=== PATIENT | male | born 1960 | race American Indian/Alaskan Native ===

== ENCOUNTER 2019-06-13 01:17 | Observation (INO) | payer MEDICAID ==
--- NOTE | 2019-06-13 03:49 | Cat Scan Report ---
CT head without contrast INDICATION : Syncope. TECHNIQUE: Axial imaging performed from the skull apex through the skull base without the use of con trast. All CT scans at this location are performed using CT dose reduction for ALARA by means of aut omated exposure control. COMPARISON: CT facial bones from 03/06/2019 FINDINGS: Parenchyma: No acute intracranial hemorrhage or parenchymal abnormality. Ventricles: Ventricles are normal in size and appear symmetric. Soft tissues: Soft tissues including the orbits appear normal. Bones: No acute osseous abnormality. Sinuses: Sinuses and mastoid air cells are clear. IMPRESSION: No acute abnormality. Signer Name: James Mike MD Signed: 06/13/2019 3:45 AM Workstation Name: [id number]
[2019-06-13 03:54] LABS: Basophils # (Auto) 0.1 K/mm3 (0.0-0.1); Basophils % (Auto) 0.6 % (0.0-1.8); Eosinophils # (Auto) 0.3 K/mm3 (0.0-0.4); Eosinophils % (Auto) 2.7 % (0.0-4.3); Hematocrit 40.5 % (35.5-45.6); Hemoglobin 13.3 gm/dl (11.8-15.2); Lymphocytes # (Auto) 3.2 K/mm3 (1.2-5.4); Lymphocytes % (Auto) 28.8 % (13.4-35.0); Mean Corpuscular HGB Conc 33 % (32-34); Mean Corpuscular Volume 80 fl (84-94); Monocytes % (Auto) 8.5 % (0.0-7.3); Platelet Count 277 K/mm3 (140-440); Red Blood Count 5.05 M/mm3 (3.65-5.03); Red Cell Distribution Width 14.3 % (13.2-15.2)
[2019-06-13 04:23] LABS: Alanine Aminotransferase 16 units/L (7-56); Albumin 4.2 g/dL (3.9-5); BUN/Creatinine Ratio 12; Blood Urea Nitrogen 22 mg/dL (9-20); Calcium 9.6 mg/dL (8.4-10.2); Hemolysis Index 13
[2019-06-13] MEDS ORDERED: SODIUM CHLORIDE 0.9% 1000 ML 1,000 ML IV ONE (07:07)
[2019-06-13] MEDS ORDERED: ACETAMINOPHEN 500 MG TAB PO ONE (07:08)
--- NOTE | 2019-06-13 07:13 | Emergency Department Report ---
ED General Adult HPI - General Chief complaint: Syncope Stated complaint: SYNCOPE Time Seen by Provider: 06/13/19 06:44 Source: patient, EMS (EMS documentation not available at this time.), RN notes reviewed, old records reviewed Mode of arrival: Ambulatory Limitations: No Limitations - History of Present Illness Initial comments: Primary care doctor: Dr. Wayne The patient is a 59-year-old gentleman, history of renal insufficiency, obesity, diabetes, hypertension, "overactive bladder", recently started a new bladder medication around 1 month ago. Presents to the ER today with complaint of multiple episodes of syncope. Patient reports that over the past year or so, he's been having episodes of loss of consciousness. There typically precipita sylvain by cough. He was evaluated at [facility] last year, and reports that he had a normal cardiac stress test. He reports over the past day and a half, 3 episodes of loss of consciousness, which are provoked by coughing. He indicates he is taking new bladder medication 1 month ago, and he is not quite sure what the name of it is. He denies DVT and pulmonary embolus risk factors. He landed onto his right head earlier on yesterday after losing consciousness. He has a mild right-sided headache. He also has paraspinal back pain, left flank pain, right hip pain, and twisted knee after falling out and/or losing consciousness. He has no chest pain, no new shortness of breath, no anterior abdominal pain, no testicular pain, no hematuria, he reports brown stool, that is dark, he is not sure if there is any blood. There is no focal extremity weakness and/or numbness. He denies DVT and pulmonary embolism risk factors. -: Sudden Location: back, lower extremity Severity scale (0 -10): 8 Quality: aching Consistency: intermittent Improves with: movement, rest Worsens with: other (coughing) - Related Data Home Medications Medication Instructions Recorded Confirmed Last Taken Flomax 10/31/14 10/31/14 10/31/14 Ziprasidone [Geodon] 60 mg PO BID 10/31/14 03/08/19 03/08/19 10:00 Aspirin [Aspirin BABY CHEW TAB] 81 mg PO QDAY 03/08/19 03/08/19 Unknown Celexa 10 mg PO QDAY 03/08/19 03/08/19 Unknown Colchicine 6 mg PO DAILY 03/08/19 03/08/19 Unknown Flexeril 10 MG TAB 10 mg PO BID PRN 03/08/19 03/08/19 Unknown Levemir VIAL 40 units SQ QHS 03/08/19 03/08/19 Unknown Lipitor 40 mg PO QHS 03/08/19 03/08/19 Unknown Lispro Insulin [HumaLOG] 16 units SQ AC 03/08/19 03/08/19 Unknown Metoprolol Tartrate 50 mg PO BID 03/08/19 03/08/19 Unknown Proscar 5 mg PO QDAY 03/08/19 03/08/19 Unknown amLODIPine 10 mg PO QDAY 03/08/19 03/08/19 Unknown oxyCODONE 15 mg PO QID PRN 03/08/19 03/08/19 Unknown Previous Rx's Medication Instructions Recorded Last Taken Type Clindamycin [Clindamycin CAP] 600 mg PO BID #20 capsule 03/08/19 Unknown Rx Allergies Allergy/AdvReac Type Severity Reaction Status Date / Time lisinopril AdvReac Unknown Verified 06/13/19 02:50 ED Review of Systems ROS: Stated complaint: SYNCOPE Other details as noted in HPI Constitutional: denies: fever Eyes: denies: eye discharge ENT: denies: epistaxis Respiratory: cough. denies: wheezing Cardiovascular: syncope. denies: chest pain Gastrointestinal: other. denies: abdominal pain, nausea, vomiting, hematemesis, melena Genitourinary: denies: testicular pain Musculoskeletal: back pain, arthralgia, myalgia Skin: denies: lesions Neurological: headache. denies: weakness Hematological/Lymphatic: other ED Past Medical Hx - Past Medical History Previous Medical History?: Yes Hx Hypertension: Yes Hx Congestive Heart Failure: No Hx Diabetes: Yes Hx Renal Disease: Yes (Decreased kidney function. MD monitoring.) Hx Arthritis: Yes Hx Kidney Stones: Yes Hx Asthma: No Hx COPD: No Additional medical history: Boils, Gallstones, Kidney Stones, Gout, Anemia, Neuropathy - Surgical History Past Surgical History?: No - Social History Smoking Status: Current Every Day Smoker - Medications Home Medications: Home Medications Medication Instructions Recorded Confirmed Last Taken Type Flomax 10/31/14 10/31/14 10/31/14 History Ziprasidone [Geodon] 60 mg PO BID 10/31/14 03/08/19 03/08/19 10:00 History Aspirin [Aspirin BABY CHEW TAB] 81 mg PO QDAY 03/08/19 03/08/19 Unknown History Celexa 10 mg PO QDAY 03/08/19 03/08/19 Unknown History Clindamycin [Clindamycin CAP] 600 mg PO BID #20 capsule 03/08/19 Unknown Rx Colchicine 6 mg PO DAILY 03/08/19 03/08/19 Unknown History Flexeril 10 MG TAB 10 mg PO BID PRN 03/08/19 03/08/19 Unknown History Levemir VIAL 40 units SQ QHS 03/08/19 03/08/19 Unknown History Lipitor 40 mg PO QHS 03/08/19 03/08/19 Unknown History Lispro Insulin [HumaLOG] 16 units SQ AC 03/08/19 03/08/19 Unknown History Metoprolol Tartrate 50 mg PO BID 03/08/19 03/08/19 Unknown History Proscar 5 mg PO QDAY 03/08/19 03/08/19 Unknown History amLODIPine 10 mg PO QDAY 03/08/19 03/08/19 Unknown History oxyCODONE 15 mg PO QID PRN 03/08/19 03/08/19 Unknown History ED Physical Exam - General Limitations: No Limitations General appearance: alert, in no apparent distress, obese - Head Head exam: Present: atraumatic, normocephalic - Eye Eye exam: Present: normal appearance, PERRL, EOMI. Absent: nystagmus - ENT ENT exam: Present: normal exam, normal orophraynx, mucous membranes moist, normal external ear exam - Neck Neck exam: Present: normal inspection, full ROM. Absent: tenderness, meni ngismus - Respiratory Respiratory exam: Present: normal lung sounds bilaterally. Absent: respiratory distress - Cardiovascular Cardiovascular Exam: Present: normal rhythm, tachycardia, normal heart sounds. Absent: systolic murmur, diastolic murmur, rubs, gallop - GI/Abdominal GI/Abdominal exam: Present: soft. Absent: distended, tenderness, guarding, rebound, rigid, pulsatile mass - Rectal Rectal exam: Present: normal inspection, normal rectal tone, heme (-) stool, other (chaperoned by nurse Henok Ly). Absent: heme (+) stool, black stool, bloody stool, fecal impaction, hemorrhoids, mass, tenderness, prostate tenderness, prostate enlargement - Extremities Exam Extremities exam: Present: normal inspection, full ROM, other (2+ pulses noted in the bilateral upper and lower extremities. There is no long bony tenderness. The pelvis is stable. The muscular compartments are soft. There is no palpable cord. There is no redness, pus or streaking.). Absent: calf tenderness - Back Exam Back exam: Present: normal inspection. Absent: tenderness, CVA tenderness (R), CVA tenderness (L), paraspinal tenderness, vertebral tenderness - Neurological Exam Neurological exam: Present: alert, oriented X3, normal gait, other (there is no facial droop. Tongue is midline. Extraocular movements are intact bilaterally. Walking with a steady gait. Speaking in full sentences. Normal appropriate thought content. 5 out of 5 strength in 4 extremities. Sensation is intact to light touch in 4 extremities.). Absent: motor sensory deficit - Psychiatric Psychiatric exam: Present: normal affect, normal mood - Skin Skin exam: Present: warm, dry, intact, normal color. Absent: rash ED Course Vital Signs 06/13/19 06/13/19 06/13/19 03:05 07:07 07:16 Temperature 98.1 F Pulse Rate 118 H Respiratory 20 Rate Blood Pressure 128/66 Blood Pressure 141/87 [Right] O2 Sat by Pulse 98 100 99 Oximetry 06/13/19 06/13/19 06/13/19 07:34 07:54 08:00 Temperature Pulse Rate Respiratory Rate Blood Pressure 128/66 122/77 120/74 Blood Pressure [Right] O2 Sat by Pulse 100 99 100 Oximetry 06/13/19 08:30 Temperature Pulse Rate Respiratory Rate Blood Pressure 128/66 Blood Pressure [Right] O2 Sat by Pulse 100 Oximetry - Reevaluation(s) Reevaluation #1: 06/13/19 07:13 Differential diagnosis, including but not limited to: Orthostasis, vagal event, structural cardiac disease, medication side effect, AAA, dehydration, pulmonary embolism, GI bleed Assessment and plan: 59-year-old gentleman with a number of vascular comorbidities, with multiple episodes of syncope, provoked by coughing. He is afebrile with reassuring vital signs with the exception of tachycardia, does not endorse any pulmonary embolism or DVT risk factors and he is low risk by well's criteria. Clinically sober, GCS of 15, cervical spine cleared through [place] and nexus C-spine rule. Leading diagnosis is likely orthostasis less vagal event, likely exacerbated by numerous medications with potential for orthostatics. We have requested medications be reconciled. Noncontrast CT scan of the brain is negative for acute disease. There is no evidence of bleeding on my rectal examination, and hemoglobin, hematocrit are fairly unremarkable at this time. Given tachycardia, x-ray of the chest and d-dimer will be ordered, given complaint of back pain and left flank pain, noncontrast CT scan of the abdomen and pelvis will be ordered. Additional appropriate screening laboratory studies are ordered. Discussed this with the patient, we have recommended admission to the medical service once initial diagnostics have resulted. Patient reports he is amenable to this plan of care. Reevaluation #2: 06/13/19 07:57 D-dimer negative. Hospital physician, Dr. Matilde Ibarra to admit We are still awaiting medication reconciliation. X-ray of the chest unremarkable. Noncontrast CT scan of her pelvis does not demonstrate any AAA that I can detect. ED Medical Decision Making - Lab Data Result diagrams: 06/13/19 03:33 06/13/19 03:33 Vital Signs 06/13/19 03:05 Temperature 98.1 F Pulse Rate 118 H Respiratory 20 Rate Blood Pressure 141/87 [Right] O2 Sat by Pulse 98 Oximetry Lab Results 06/13/19 06/13/19 Range/Units 03:33 03:33 WBC 11.3 H (4.5-11.0) K/mm3 RBC 5.05 H (3.65-5.03) M/mm3 Hgb 13.3 (11.8-15.2) gm/dl Hct 40.5 (35.5-45.6) % MCV 80 L (84-94) fl MCH 26 L (28-32) pg MCHC 33 (32-34) % RDW 14.3 (13.2-15.2) % Plt Count 277 (140-440) K/mm3 Lymph % (Auto) 28.8 (13.4-35.0) % [place] % (Auto) 8.5 H (0.0-7.3) % Eos % (Auto) 2.7 (0.0-4.3) % Baso % (Auto) 0.6 (0.0-1.8) % Lymph # 3.2 (1.2-5.4) K/mm3 [place] # 1.0 H (0.0-0.8) K/mm3 Eos # 0.3 (0.0-0.4) K/mm3 Baso # 0.1 (0.0-0.1) K/mm3 Seg Neutrophils % 59.4 (40.0-70.0) % Seg Neutrophils # 6.7 (1.8-7.7) K/mm3 Sodium 136 L (137-145) mmol/L Potassium 4.8 (3.6-5.0) mmol/L Chloride 99.7 (98-107) mmol/L Carbon Dioxide 20 L (22-30) mmol/L Anion Gap 21 mmol/L BUN 22 H (9-20) mg/dL Creatinine 1.8 H (0.8-1.5) mg/dL Estimated GFR 47 ml/min BUN/Creatinine Ratio 12 % Glucose 224 H (75-100) mg/dL Calcium 9.6 (8.4-10.2) mg/dL Total Bilirubin 0.20 (0.1-1.2) mg/dL AST 13 (5-40) units/L ALT 16 (7-56) units/L Alkaline Phosphatase 105 (35-129) units/L Troponin T < 0.010 (0.00-0.029) ng/mL Total Protein 8.0 (6.3-8.2) g/dL Albumin 4.2 (3.9-5) g/dL Albumin/Globulin Ratio 1.1 % - EKG Data -: EKG Interpreted by Ok EKG shows normal: sinus rhythm Rate: tachycardia - EKG Data When compared to previous EKG there are: previous EKG unavailable 06/13/19 07:15 EKG today shows a sinus tachycardia, 114 bpm, there is a normal axis, QTC is prolonged, low voltage in the inferior leads, motion artifact V4 and V5. Poor R progression. Abnormal EKG. Not consistent with STEMI. - Radiology Data Radiology results: pending, report reviewed, image reviewed Referring Physician: KRIS MÉNDEZ Patient Name: CHIN AMAYA Date of : 1960 Sex: Male Report Date: 2019-06-13 Report Status: Finalized Findings [address] [place] [address] Cat Scan Report Signed Patient: CHIN AMAYA MR#: [id number] : 1960 Acct:[id number] Age/Sex: 59 / M ADM Date: 06/13/19 Loc: ED Attending Dr: Ordering Physician: Kris Sorto MD Date of Service: 06/13/19 Procedure(s): CT head/brain wo con Accession Number(s): [id number] cc: Kris Sorto MD CT head without contrast INDICATION : Syncope. TECHNIQUE: Axial imaging performed from the skull apex through the skull base without the use of contrast. All CT scans at this location are performed using CT dose reduction for ALARA by means of automated exposure control. COMPARISON: CT facial bones from 03/06/2019 FINDINGS: Parenchyma: No acute intracranial hemorrhage or parenchymal abnormality. Ventricles: Ventricles are normal in size and appear symmetric. Soft tissues: Soft tissues including the orbits appear normal. Bones: No acute osseous abnormality. Sinuses: Sinuses and mastoid air cells are clear. IMPRESSION: No acute abnormality. Signer Name: James Mike MD Signed: 06/13/2019 3:45 AM Workstation Name: [id number] Transcribed By: JW Dictated By: James Mike MD Electronically Authenticated By: James Mike MD Signed Date/Time: 06/13/19 2325 Critical care attestation.: If time is entered above; I have spent that time in minutes in the direct care of this critically ill patient, excluding procedure time. ED Disposition Clinical Impression: Acute worsening of stage 3 chronic kidney disease, Syncope, Acute left flank pain Disposition: OP ADMIT IP TO THIS HOSP Is pt being admited?: Yes Does the pt Need Aspirin: Yes Condition: Stable
[2019-06-13 07:42] LABS: INR 0.95 (0.87-1.13)
[2019-06-13] MEDS ORDERED: ASPIRIN 81 MG TAB CHEW PO ONE (07:58)
--- NOTE | 2019-06-13 08:09 | History and Physical Report ---
History of Present Illness Date of examination: 06/13/19 Date of admission: 06/13/19 Chief complaint: Recurrent syncope, intermittent rectal bleeding History of present illness: 59-year-old morbidly obese -[place] male patient with significant past medical history of chronic renal insufficiency morbid obesity diabetes hypertension over active bladder Present to the emergency room with history of recurrent syncopal episodes and intermittent rectal bleeding. However the total exam negative for occult blood done by ER physician Patient reports that he's been having these syncopal episodes for the last 1 year off and on especially when he has persistent cough. Patient reports that he has difficulty swallowing which causes him to cough and excessive cough makes him pass out. Patient has not sought medical help for difficulty swallowing. CT head without contrast no acute abnormality noted Vision denies chest pain or shortness of breath, denies palpitation Denies nausea or vomiting or abdominal pain Past History Past Medical History: diabetes, hypertension, hyperlipidemia, other (BPH) Past Surgical History: Other (sebaceous cyst excision) Social history: lives with family, smoking. denies: alcohol abuse, prescription drug abuse Family history: hypertension Medications and Allergies Allergies Allergy/AdvReac Type Severity Reaction Status Date / Time lisinopril AdvReac Unknown Verified 06/13/19 02:50 Home Medications Medication Instructions Recorded Confirmed Last Taken Type Amlodipine Besylate [Norvasc] 10 mg PO QDAY 06/13/19 06/13/19 Unknown History Aspirin [Aspirin BABY CHEW TAB] 81 mg PO QDAY 06/13/19 06/13/19 Unknown History AtorvaSTATin [Lipitor] 40 mg PO QHS 06/13/19 06/13/19 Unknown History Cyclobenzaprine [Flexeril] 10 mg PO BID 06/13/19 06/13/19 Unknown History Finasteride 5 mg PO QDAY 06/13/19 06/13/19 Unknown History Insulin Detemir [Levemir Flextouch] 40 unit SQ QDAY 06/13/19 06/13/19 Unknown History Insulin Lispro [Humalog 100 16 units SUB-Q TID 06/13/19 06/13/19 Unknown History UNITS/ML Kwikpen] Metoprolol Tartrate 50 mg PO BID 06/13/19 06/13/19 Unknown History Oxycodone HCl [oxyCODONE] 15 mg PO Q6H PRN 06/13/19 06/13/19 Unknown History Tamsulosin [Flomax] 0.4 mg PO QDAY 06/13/19 06/13/19 Unknown History Active Meds: Active Medications Sodium Chloride (Nacl 0.9% 1000 Ml) 1,000 mls @ 999 mls/hr IV BOLUS ONE Stop: 06/13/19 08:07 Last Admin: 06/13/19 08:00 Dose: 999 mls/hr Documented by: Review of Systems Constitutional: fatigue, no weight loss, no weight gain, no fever, no chills Ears, nose, mouth and throat: no nasal congestion, no nasal discharge Cardiovascular: syncope, lightheadedness, no chest pain, no orthopnea, no palpitations, no shortness of breath Respiratory: no cough, no shortness of breath Gastrointestinal: other (difficulty swallowing), no abdominal pain, no nausea, no vomiting Genitourinary Male: no dysuria, no flank pain Musculoskeletal: no myalgias, no arthritis Integumentary: no rash, no lesions Neurological: syncope Psychiatric: no anxiety, no depression Endocrine: no cold intolerance, no heat intolerance Hematologic/Lymphatic: no easy bruising, no easy bleeding Allergic/Immunologic: no urticaria, no allergic rhinitis Exam - Constitutional Vitals: Temp Pulse Resp BP Pulse Ox 98.1 F 118 H 20 122/77 99 06/13/19 03:05 06/13/19 03:05 06/13/19 03:05 06/13/19 07:54 06/13/19 07:54 General appearance: Present: mild distress, well-nourished, obese (morbidly obese) - EENT Eyes: Present: PERRL, EOM intact - Neck Neck: Present: supple, normal ROM - Respiratory Respiratory effort: normal Respiratory: bilateral: diminished, negative: rales, rhonchi, wheezing - Cardiovascular Rhythm: regular Heart Sounds: Present: S1 & S2 - Extremities Extremities: no ischemia, No edema - Abdominal General gastrointestinal: Present: soft, non-tender, non-distended, normal bowel sounds - Integumentary Integumentary: Present: clear, warm - Musculoskeletal Musculoskeletal: strength equal bilaterally - Psychiatric Psychiatric: appropriate mood/affect, cooperative - Neurologic Neurologic: CNII-XII intact, moves all extremities Results - Labs CBC & Chem 7: 06/13/19 03:33 02/03/20 03:33 Labs: Abnormal lab results 02/03/20 02/03/20 02/03/20 Range/Units 03:33 03:33 07:00 WBC 11.3 H (4.5-11.0) K/mm3 RBC 5.05 H (3.65-5.03) M/mm3 MCV 80 L (84-94) fl MCH 26 L (28-32) pg [place] % (Auto) 8.5 H (0.0-7.3) % [place] # 1.0 H (0.0-0.8) K/mm3 Sodium 136 L (137-145) mmol/L Carbon Dioxide 20 L (22-30) mmol/L BUN 22 H (9-20) mg/dL Creatinine 1.8 H (0.8-1.5) mg/dL Glucose 224 H (75-100) mg/dL Total Creatine Kinase 230 H (55-170) units/L Assessment and Plan --Recurrent episodes syncope; autonomic instability Probably vasovagal medication induced Fall precautions, review home medications when list is available CT head negative for acute abnormality Syncope work-up carotid Doppler echocardiogram if not done in the last 6 months Physical therapy occupational therapy --Rectal bleeding; closely monitor H&H and transfuse as needed GI evaluation, stool guaiac was negative per ER doctor --Acute kidney injury; vasomotor nephropathy Gentle hydration, monitor renal function, avoid nephrotoxins --Type 2 diabetes mellitus; Accu-Chek sliding scale coverage ADA diet Oral hypoglycemics as needed, patient's recent hemoglobin A1c within last 6 months HbA1c 14.9, Diabetic education, nutrition education --Hypertension; moderate control However in view of recurrent syncope, will hold antihypertensives Closely monitor blood pressures PRN medications --Morbid obesity; Advised weight reduction when medically stable --History of BPH; continue Flomax --History of psych disorder/psychotic depression; hold all psych medications Psych consult to review medications and advice --DVT prophylaxis; Lovenox Monitor closely and adjust management as needed
--- NOTE | 2019-06-13 08:24 | XRay Report ---
XR pelvis 1-2V INDICATION / CLINICAL INFORMATION: hip pain fall. COMPARISON: None available. FINDINGS: BONES/JOINT(S): No acute fracture or subluxation. Moderate bilateral hip DJD. SOFT TISSUES: No significant abnormality. ADDITIONAL FINDINGS: None. Signer Name: Rodri Roberts MD Signed: 06/13/2019 8:20 AM Workstation Name: [id number]
--- NOTE | 2019-06-13 08:25 | XRay Report ---
CHEST 1 VIEW 06/13/2019 7:33 AM INDICATION / CLINICAL INFORMATION: syncope x 3, cough. COMPARISON: 03/06/2019 FINDINGS: SUPPORT DEVICES: None. HEART / MEDIASTINUM: No significant abnormality. LUNGS / PLEURA: No significant pulmonary or pleural abnormality. No pneumothorax. Developmental azygo s fissure again noted. ADDITIONAL FINDINGS: No significant additional findings. IMPRESSION: 1. No acute findings. Signer Name: Rodri Roberts MD Signed: 06/13/2019 8:20 AM Workstation Name: [email or web address]
[2019-06-13 08:26] LABS: Bilirubin,Urine NEG (Negative); Blood,Urine NEG (Negative); Color,Urine Yellow (Yellow); Mucus,Urine FEW /HPF; Protein,Urine <15 mg/dL mg/dL (Negative); Urobilinogen,Urine < 2.0 mg/dL (<2.0)
--- NOTE | 2019-06-13 09:11 | Cat Scan Report ---
CT ABDOMEN AND PELVIS WITHOUT CONTRAST HISTORY: left flank pain , back pain syncope COMPARISON: None. TECHNIQUE: Axial CT images were obtained through the abdomen and pelvis without IV contrast. Sagittal and coronal reformatted images. All CT scans at this location are performed using CT dose reduction for ALARA by means of automated exposure control. FINDINGS: CT ABDOMEN: Lung Bases: Clear. Liver: No significant abnormality. Biliary: No significant abnormality. Spleen: No significant abnormality. Unenlarged. Pancreas: No significant abnormality. Adrenals: No significant abnormality. Kidneys: Scattered punctate renal calyceal stones are identified in both kidneys. No obvious ureteral stones or hydronephrosis. No cystic disease or obvious mass on noncontrast CT. Lymphatics: No lymphadenopathy. Vasculature: No significant abnormality. Bowel/Peritoneum: There are a few scattered diverticula in the ascending and sigmoid colon. No eviden ce for obstruction or focal inflammation. No free fluid or free air. Normal appendix. CT PELVIS: : No significant abnormality. Osseous Structures: No significant abnormality. Additional Findings: None IMPRESSION: No acute process. Bilateral nephrolithiasis, nonobstructing. No ureteral stones are detected. Mild diverticulosis of the colon. Signer Name: Chad Andrade Jr, MD Signed: 06/13/2019 9:07 AM Workstation Name: [id number]
[2019-06-13] MEDS ORDERED: COLCHICINE 0.6 MG CAP PO SCH (10:00)
[2019-06-13] MEDS ORDERED: ASPIRIN 81 MG TAB CHEW ONE (10:15)
[2019-06-13] MEDS: ASPIRIN 81 MG TAB CHEW PO SCH (10:22)
[2019-06-13] MEDS: INSULIN LISPRO 100 UNIT/ML SUB-Q SCH ×3 (12:00→22:44)
--- NOTE | 2019-06-13 16:23 | Vascular Lab Report ---
BILATERAL CAROTID DOPPLER HISTORY: Syncope. FINDINGS: Duplex Doppler evaluation of the carotid system was performed with spectral waveform analys is. Antegrade vertebral flow is present bilaterally. Peak systolic velocity at the right internal carotid artery is 67 cm/s. Systolic velocity ratio is 0. 9. Peak systolic velocity at the left internal carotid artery is 72 cm/s. Systolic velocity ratio is 0.9 . Grayscale imaging demonstrates mild scattered plaque, but no flow limiting stenosis. IMPRESSION: Stenosis less than 50% bilaterally at the internal carotid arteries per NASCET criteria. Signer Name: Miguel Merchant MD Signed: 06/13/2019 4:18 PM Workstation Name: [id number]
[2019-06-13] MEDS ORDERED: NON-FORMULARY EACH (Lipitor 40 MG) PO SCH (22:00)
[2019-06-13] MEDS ORDERED: METOPROLOL TARTRATE 50 MG PO SCH (22:00)
[2019-06-13] MEDS ORDERED: INSULIN GLARGINE 100 UNITS/ML SUB-Q SCH (22:00)
[2019-06-13] MEDS: METOPROLOL TARTRATE 50 MG TAB PO SCH (22:30)
[2019-06-14 06:19] LABS: Basophils # (Auto) 0.1 K/mm3 (0.0-0.1); Basophils % (Auto) 0.7 % (0.0-1.8); Eosinophils # (Auto) 0.3 K/mm3 (0.0-0.4); Eosinophils % (Auto) 3.4 % (0.0-4.3); Hematocrit 39.1 % (35.5-45.6); Hemoglobin 12.5 gm/dl (11.8-15.2); Lymphocytes # (Auto) 2.8 K/mm3 (1.2-5.4); Lymphocytes % (Auto) 32.9 % (13.4-35.0); Mean Corpuscular HGB Conc 32 % (32-34); Mean Corpuscular Volume 82 fl (84-94); Monocytes # (Auto) 0.7 K/mm3 (0.0-0.8); Monocytes % (Auto) 7.9 % (0.0-7.3); Platelet Count 230 K/mm3 (140-440); Red Cell Distribution Width 14.6 % (13.2-15.2)
[2019-06-14 06:30] LABS: Calcium 8.4 mg/dL (8.4-10.2)
[2019-06-14] MEDS: INSULIN LISPRO 100 UNIT/ML SUB-Q SCH ×4 (09:22→14:05)
[2019-06-14] MEDS ORDERED: NICOTINE 14 MG/24 HR PATCH TD SCH (10:00)
[2019-06-14] MEDS ORDERED: amLODIPine 10 MG TAB PO SCH (10:00)
[2019-06-14] MEDS ORDERED: FINASTERIDE 5 MG TAB PO SCH (10:00)
[2019-06-14] MEDS ORDERED: TAMSULOSIN 0.4 MG CAP PO SCH (10:00)
--- NOTE | 2019-06-14 10:42 | Gastroenterology Consultation ---
History of Present Illness - Reason for Consult Consult date: 06/14/19 rectal bleeding, dysphagia Requesting physician: RASTA PÉREZ - History of Present Illness Patient is a 59 y/o male with PMH of renal insufficiency, obesity, DM, HTN, and BPH who presented to ED with c/o syncope associated with coughing to which he was admitted and currently undergoing a workup. He also had c/o intermittent rectal bleeding and difficulty swallowing to which GI has been consulted. Patient is previously known to our service and followed by Dr. Elaine. He has a hx of PATI requiring prior daily iron supplements and chronic constipation due to chronic narcotic use for back pain. His last colonoscopy was last year on 06/15/2018 that revealed a descending polyp, diverticulosis, and internal hemorrhoids. Last EGD for evaluation of dark stool was on 10/02/2017 that showed gastritis (bx negative for H pylori) but no ulcer. This morning patient was resting in bed w/o acute distress. He reports dysphagia to solids (primarily breads) x ~2 months, along with a recent episode of constipation with bright red blood in stool following BM x 1 week. No hematemesis, melena, or active signs of bleeding today. Also admits to frequent regurgitation but denies fever, CP, SOB, wt loss, N/v, odynophagia, or diarrhea. Takes daily ASA. No hx of PUD or liver disease. Abd CT w/o acute process. Past History Past Medical History: diabetes, hypertension, hyperlipidemia, other (BPH) Past Surgical History: Other (sebaceous cyst excision) Social history: lives with family, smoking. denies: alcohol abuse, prescription drug abuse Family history: hypertension Medications and Allergies Allergies Allergy/AdvReac Type Severity Reaction Status Date / Time lisinopril AdvReac Unknown Verified 06/13/19 02:50 Home Medications Medication Instructions Recorded Confirmed Last Taken Type Amlodipine Besylate [Norvasc] 10 mg PO QDAY 06/13/19 06/13/19 Unknown History Aspirin [Aspirin BABY CHEW TAB] 81 mg PO QDAY 06/13/19 06/13/19 Unknown History AtorvaSTATin [Lipitor] 40 mg PO QHS 06/13/19 06/13/19 Unknown History Cyclobenzaprine [Flexeril] 10 mg PO BID 06/13/19 06/13/19 Unknown History Finasteride 5 mg PO QDAY 06/13/19 06/13/19 Unknown History Insulin Detemir [Levemir Flextouch] 40 unit SQ QDAY 06/13/19 06/13/19 Unknown History Insulin Lispro [Humalog 100 16 units SUB-Q TID 06/13/19 06/13/19 Unknown History UNITS/ML Kwikpen] Metoprolol Tartrate 50 mg PO BID 06/13/19 06/13/19 Unknown History Oxycodone HCl [oxyCODONE] 15 mg PO Q6H PRN 06/13/19 06/13/19 Unknown History Tamsulosin [Flomax] 0.4 mg PO QDAY 06/13/19 06/13/19 Unknown History Active Meds: Active Medications Amlodipine Besylate (Amlodipine) 10 mg PO QDAY [facility] Aspirin (Baby Aspirin) 81 mg PO QDAY [facility] Last Admin: 06/13/19 10:22 Dose: 81 mg Documented by: Atorvastatin Calcium (Lipitor) 40 mg PO QHS [facility] Last Admin: 06/13/19 22:31 Dose: 40 mg Documented by: Finasteride (Proscar) 5 mg PO QDAY [facility] Insulin Glargine (Lantus) 20 units SUB-Q QHS [facility] Last Admin: 06/13/19 22:30 Dose: 20 units Documented by: Insulin Human Lispro (Humalog) 0 unit SUB-Q [facility]; Protocol Last Admin: 06/14/19 09:28 Dose: 3 unit Documented by: Insulin Human Lispro (Humalog) 8 unit SUB-Q [facility] Last Admin: 06/14/19 09:22 Dose: Not Given Documented by: Metoprolol Tartrate (Metoprolol) 50 mg PO BID [facility] Last Admin: 06/13/19 22:30 Dose: 50 mg Documented by: Nicotine (Habitrol) 14 mg TD QDAY [facility] Tamsulosin HCl (Flomax) 0.4 mg PO QDAY [facility] medications reviewed/updated as required Review of Systems - Review of Systems All systems: negative Gastrointestinal: BRBPR, other (dysphagia to solids) Exam - Constitutional Vital Signs: Temp Pulse Resp BP Pulse Ox 98.0 F 90 16 136/84 99 06/14/19 03:30 06/14/19 03:30 06/14/19 04:00 06/14/19 03:30 06/14/19 03:30 General appearance: no acute distress, obese - EENT Eyes: PERRL, EOM intact ENT: hearing intact - Respiratory Respiratory effort: normal - Cardiovascular Rhythm: regular - Gastrointestinal General gastrointestinal: Present: soft, non-tender, non-distended, normal bowel sounds, other (obese) - Integumentary Integumentary: Present: warm, dry - Neurologic Neurological: alert and oriented x3 - Labs CBC & Chem 7: 06/14/19 04:28 06/14/19 04:28 Lab Results: Laboratory Results - last 24 hr 06/13/19 06/13/19 06/14/19 16:47 22:44 04:28 WBC 8.4 RBC 4.80 Hgb 12.5 Hct 39.1 MCV 82 L MCH 26 L MCHC 32 RDW 14.6 Plt Count 230 Lymph % (Auto) 32.9 [place] % (Auto) 7.9 H Eos % (Auto) 3.4 Baso % (Auto) 0.7 Lymph # 2.8 [place] # 0.7 Eos # 0.3 Baso # 0.1 Seg Neutrophils % 55.1 Seg Neutrophils # 4.6 Sodium Potassium Chloride Carbon Dioxide Anion Gap BUN Creatinine Estimated GFR BUN/Creatinine Ratio Glucose POC Glucose 261 H 280 H Calcium Magnesium 06/14/19 06/14/19 04:28 07:42 WBC RBC Hgb Hct MCV MCH MCHC RDW Plt Count Lymph % (Auto) [place] % (Auto) Eos % (Auto) Baso % (Auto) Lymph # [place] # Eos # Baso # Seg Neutrophils % Seg Neutrophils # Sodium 136 L Potassium 4.4 Chloride 101.3 Carbon Dioxide 20 L Anion Gap 19 BUN 23 H Creatinine 1.7 H Estimated GFR 51 BUN/Creatinine Ratio 14 Glucose 246 H POC Glucose 219 H Calcium 8.4 Magnesium 1.90 Assessment and Plan 1.dysphagia 2.cough/regurgitation -patient with difficulty swallowing solids (breads) x ~2 months -last EGD 09/2017 showed gastritis (bx negative for H pylori; esophagus normal) -etiology-possibly related to GERD vs other -will order esophagram for further evaluation (r/o stricture/mass) -consider repeat EGD based on results -start on PPI -Keep NPO for now -continue supportive care -further recommendations to follow 3.hematochezia 4.constipation (chronic 2/2 narcotics use) -H/H WNL; monitor and transfuse as needed -HD stable; no active signs of bleeding today -last colonoscopy on 06/15/2018 that revealed a descending polyp, diverticulosis, and internal hemorrhoids -etiology-likely anorectal in origin (hemorrhoids) -no plan for repeat colonoscopy at this time, unless overt bleeding develops -start on daily bowel regimen with Miralax -topical hydrocortisone for hemorrhoids -continue supportive care
--- NOTE | 2019-06-14 11:53 | Fluoroscopy Report ---
BARIUM SWALLOW Indication: dysphagia. Technique: Single contrast barium technique utilized to evaluate the esophagus. FINDINGS: To begin the exam, swallowing was evaluated in the lateral position under direct fluorosco py. Swallowing was normal. No mucosal irregularity, mass, mass effect, or critical stenosis. There were no abnormal tertiary c ontractions as seen with dysmotility. No gastroesophageal reflux. IMPRESSION: Unremarkable exam. Fluoroscopic time: 0.7 minutes Number of fluoroscopic images: 17 Signer Name: Chad Andrade Jr, MD Signed: 06/14/2019 11:48 AM Workstation Name: [id number]
[2019-06-14] MEDS ORDERED: POLYETHYLENE GLYCOL 3350 17 GM POWDER PO SCH (12:00)
[2019-06-14 13:05] VITALS: BP 140/90
[2019-06-14] MEDS: METOPROLOL TARTRATE 50 MG TAB PO SCH (13:47)
[2019-06-14] MEDS: ASPIRIN 81 MG TAB CHEW PO SCH (13:47)
[2019-06-14] MEDS ORDERED: PANTOPRAZOLE 40 MG TAB PO SCH (14:00)
[2019-06-14] MEDS ORDERED: HYDROCORTISONE 2.5% RECT CREAM 28.35 GM PR SCH (14:00)
[2019-06-14] MEDS ORDERED: oxyCODONE /ACETAMINOPHEN 5-325MG TAB PO PRN (14:05)
[2019-06-14] MEDS ORDERED: MORPHINE 2 MG/1 ML INJ IV PRN (14:06)
--- NOTE | 2019-06-14 14:15 | Progress Note ---
Assessment and Plan Assessment and plan: --Rectal bleeding; no new episodes GI evaluation noted and appreciated, stool guaiac x2 negative --History of dysphagia --Recurrent episodes syncope; autonomic instability Probably vasovagal, probably medication induced Fall precautions, review home medications when list is available CT head negative Carotid Doppler less than 50% stenosis Echocardiogram; Physical therapy if needed --Acute kidney injury; vasomotor nephropathy Gentle hydration, monitor renal function, avoid nephrotoxins --Type 2 diabetes mellitus; Accu-Chek sliding scale coverage ADA diet Oral hypoglycemics as needed, patient's recent hemoglobin A1c within last 6 months HbA1c 14.9, Diabetic education, nutrition education --Hypertension; moderate control However in view of recurrent syncope, will hold antihypertensives Closely monitor blood pressures PRN medications --Morbid obesity; Advised weight reduction when medically stable --History of BPH; continue Flomax --History of psych disorder/psychotic depression; hold all psych medications Psych consult to review medications and advice --DVT prophylaxis; Lovenox Monitor closely and adjust management as needed History Interval history: Patient seen and examined medical records reviewed No new episodes of rectal bleeding Barium swallow no acute abnormality Hospitalist Physical - Constitutional Vitals: Temp Pulse Resp BP Pulse Ox 98.0 F 90 16 140/90 99 06/14/19 03:30 06/14/19 03:30 06/14/19 04:00 06/14/19 11:46 06/14/19 03:30 General appearance: Present: mild distress, well-nourished, obese (morbidly obese) Results - Labs CBC & Chem 7: 06/14/19 04:28 06/14/19 04:28 Labs: Laboratory Last Values WBC 8.4 K/mm3 (4.5-11.0) 06/14/19 04:28 RBC 4.80 M/mm3 (3.65-5.03) 06/14/19 04:28 Hgb 12.5 gm/dl (11.8-15.2) 06/14/19 04:28 Hct 39.1 % (35.5-45.6) 06/14/19 04:28 MCV 82 fl (84-94) L 06/14/19 04:28 MCH 26 pg (28-32) L 06/14/19 04:28 MCHC 32 % (32-34) 06/14/19 04:28 RDW 14.6 % (13.2-15.2) 06/14/19 04:28 Plt Count 230 K/mm3 (140-440) 06/14/19 04:28 Lymph % (Auto) 32.9 % (13.4-35.0) 06/14/19 04:28 [place] % (Auto) 7.9 % (0.0-7.3) H 06/14/19 04:28 Eos % (Auto) 3.4 % (0.0-4.3) 06/14/19 04:28 Baso % (Auto) 0.7 % (0.0-1.8) 06/14/19 04:28 Lymph # 2.8 K/mm3 (1.2-5.4) 06/14/19 04:28 [place] # 0.7 K/mm3 (0.0-0.8) 06/14/19 04:28 Eos # 0.3 K/mm3 (0.0-0.4) 06/14/19 04:28 Baso # 0.1 K/mm3 (0.0-0.1) 06/14/19 04:28 Seg Neutrophils % 55.1 % (40.0-70.0) 06/14/19 04:28 Seg Neutrophils # 4.6 K/mm3 (1.8-7.7) 06/14/19 04:28 PT 12.8 Sec. (12.2-14.9) 06/13/19 07:00 INR 0.95 (0.87-1.13) 06/13/19 07:00 D-Dimer 170.81 ng/mlDDU (0-234) 06/13/19 07:00 Sodium 136 mmol/L (137-145) L 06/14/19 04:28 Potassium 4.4 mmol/L (3.6-5.0) 06/14/19 04:28 Chloride 101.3 mmol/L (98-107) 06/14/19 04:28 Carbon Dioxide 20 mmol/L (22-30) L 06/14/19 04:28 Anion Gap 19 mmol/L 06/14/19 04:28 BUN 23 mg/dL (9-20) H 06/14/19 04:28 Creatinine 1.7 mg/dL (0.8-1.5) H 06/14/19 04:28 Estimated GFR 51 ml/min 06/14/19 04:28 BUN/Creatinine Ratio 14 % 06/14/19 04:28 Glucose 246 mg/dL (75-100) H 06/14/19 04:28 POC Glucose 224 (70-105) H 06/14/19 12:36 Calcium 8.4 mg/dL (8.4-10.2) 06/14/19 04:28 Magnesium 1.90 mg/dL (1.7-2.3) 06/14/19 04:28 Total Bilirubin 0.20 mg/dL (0.1-1.2) 06/13/19 03:33 AST 13 units/L (5-40) 06/13/19 03:33 ALT 16 units/L (7-56) 06/13/19 03:33 Alkaline Phosphatase 105 units/L (35-129) 06/13/19 03:33 Total Creatine Kinase 230 units/L (55-170) H 06/13/19 07:00 Troponin T < 0.010 ng/mL (0.00-0.029) 06/13/19 07:00 Total Protein 8.0 g/dL (6.3-8.2) 06/13/19 03:33 Albumin 4.2 g/dL (3.9-5) 06/13/19 03:33 Albumin/Globulin Ratio 1.1 % 06/13/19 03:33 TSH 1.770 mlU/mL (0.270-4.200) 06/13/19 07:00 Free T4 1.04 ng/dL (0.76-1.46) 06/13/19 07:00 Urine Color Yellow (Yellow) 06/13/19 08:00 Urine Turbidity Slightly-cloudy (Clear) 06/13/19 08:00 Urine pH 5.0 (5.0-7.0) 06/13/19 08:00 Ur Specific [place] 1.018 (1.003-1.030) 06/13/19 08:00 Urine Protein <15 mg/dl mg/dL (Negative) 06/13/19 08:00 Urine Glucose (UA) >=500 mg/dL (Negative) 06/13/19 08:00 Urine Ketones Neg mg/dL (Negative) 06/13/19 08:00 Urine Blood Neg (Negative) 06/13/19 08:00 Urine Nitrite Neg (Negative) 06/13/19 08:00 Urine Bilirubin Neg (Negative) 06/13/19 08:00 Urine Urobilinogen < 2.0 mg/dL (<2.0) 06/13/19 08:00 Ur Leukocyte Esterase Tr (Negative) 06/13/19 08:00 Urine WBC (Auto) 8.0 /HPF (0.0-6.0) H 06/13/19 08:00 Urine RBC (Auto) 4.0 /HPF (0.0-6.0) 06/13/19 08:00 U Epithel Cells (Auto) 1.0 /HPF (0-13.0) 06/13/19 08:00 Uric Acid Crystals 2+ 06/13/19 08:00 Urine Mucus Few /HPF 06/13/19 08:00 Active Medications - Current Medications Current Medications: Generic Name Dose Route Start Last Admin Trade Name Freq PRN Reason Stop Dose Admin Amlodipine Besylate 10 mg 06/14/19 10:00 06/14/19 13:47 Amlodipine PO 10 mg QDAY KAYLYN Administration Aspirin 81 mg 06/13/19 10:00 06/14/19 13:47 Baby Aspirin PO 81 mg QDAY KAYLYN Administration Atorvastatin Calcium 40 mg 06/13/19 22:00 06/13/19 22:31 Lipitor PO 40 mg QHS KAYLYN Administration Finasteride 5 mg 06/14/19 10:00 06/14/19 13:47 Proscar PO 5 mg QDAY KAYLYN Administration Hydrocortisone Acetate 1 applic 06/14/19 14:00 Proctosol-Hc LA Q8HR [facility] Insulin Glargine 20 units 06/13/19 22:00 06/13/19 22:30 Lantus SUB-Q 20 units QHS KAYLYN Administration Insulin Human Lispro 0 unit 06/13/19 11:30 06/14/19 14:04 Humalog SUB-Q 3 unit ACHS [facility] Administration Protocol Insulin Human Lispro 8 unit 06/14/19 07:30 06/14/19 14:05 Humalog SUB-Q 8 unit AC KAYLYN Administration Metoprolol Tartrate 50 mg 06/13/19 22:00 06/14/19 13:47 Metoprolol PO 50 mg BID KAYLYN Administration Morphine Sulfate 2 mg 06/14/19 14:06 Morphine IV Q6H PRN Pain, Moderate (4-6) Nicotine 14 mg 06/14/19 10:00 06/14/19 13:47 Habitrol TD 14 mg QDAY KAYLYN Administration Oxycodone/Acetaminophen 1 tab 06/14/19 14:05 Percocet 5/325 PO Q4H PRN Pain, Moderate (4-6) Pantoprazole Sodium 40 mg 06/14/19 14:00 Protonix PO DAILY KAYLYN Polyethylene Glycol 17 gm 06/14/19 12:00 06/14/19 13:48 Miralax 3350 PO 17 gm QDAY KAYLYN Administration Tamsulosin HCl 0.4 mg 06/14/19 10:00 06/14/19 13:47 Flomax PO 0.4 mg QDAY KAYLYN Administration
--- NOTE | 2019-06-14 15:05 | Discharge Summary ---
Providers - Providers Date of Admission: 06/13/19 07:59 Date of discharge: 06/14/19 Attending physician: RASTA PÉREZ 06/13/19 17:57 Consult to Physician [CONS] Routine Comment: Consulting Provider: NAYELI STERLING Physician Instructions: Reason For Exam: intermittent rectal bleeding/dysphagia Primary care physician: RAINE PARNELL Hospitalization Condition: Stable Disposition: DC-01 TO HOME OR SELFCARE Time spent for discharge: 32 min Core Measure Documentation - Palliative Care Palliative Care/ Comfort Measures: Not Applicable - Core Measures Any of the following diagnoses?: none Exam - Constitutional Vitals: Temp Pulse Resp BP Pulse Ox 98.0 F 90 16 140/90 99 06/14/19 03:30 06/14/19 03:30 06/14/19 04:00 06/14/19 11:46 06/14/19 03:30 Plan Activity: advance as tolerated, fall precautions Diet: diabetic Additional Instructions: If you have new episodes of rectal bleeding contact MD or go to ER. ECHO report pending , You may call ECHO lab ext [phone] in 2 days and get the report and d/w PMD Follow up with: RAINE PARNELL SR, MD [Primary Care Provider] - 3-5 Days MIN,INDIA ANGELES MD [Staff Physician] - 14 Days Prescriptions: Hydrocortisone 2.5% [Proctosol-Hc] 1 applic LA Q8HR #1 tube Pantoprazole [Protonix TAB] 40 mg PO DAILY #30 tablet
== END 2019-06-14 18:47 | disposition home or self-care (01) ==
LOC: ED 01:17 → 4A 07:59
PROVIDERS: ADMIT Internal Medicine; ATTEND Internal Medicine
DX: N17.9 Acute kidney failure, unspecified (principal); R55 Syncope and collapse; I12.9 Hypertensive chronic kidney disease with stage 1 through stage 4 chronic kidney disease, or unspecified chronic kidney disease; N18.3 Chronic kidney disease, stage 3 (moderate); E11.22 Type 2 diabetes mellitus with diabetic chronic kidney disease; K62.5 Hemorrhage of anus and rectum; E66.01 Morbid (severe) obesity due to excess calories; E78.5 Hyperlipidemia, unspecified; Z79.82 Long term (current) use of aspirin; Z79.4 Long term (current) use of insulin
CPT/HCPCS: 36415; 70450; 71045; 72170; 74176; 74220; 80048; 80053; 81001; 82270; 82271; 82550; 82962; 83735; 84439; 84443; 84484; 85025; 85379; 85610; 93005; 93010; 93306; 93880; 96361; 96372; 99284; A9270; G0378; J7030; J1815

== ENCOUNTER 2019-10-14 03:10 | Emergency (ER) | payer MEDICAID ==
[2019-10-14 04:21] LABS: Basophils % (Auto) 0.6 % (0.0-1.8); Eosinophils # (Auto) 0.2 K/mm3 (0.0-0.4); Eosinophils % (Auto) 2.8 % (0.0-4.3); Hematocrit 38.7 % (35.5-45.6); Hemoglobin 12.6 gm/dl (11.8-15.2); Lymphocytes # (Auto) 2.4 K/mm3 (1.2-5.4); Mean Corpuscular HGB Conc 33 % (32-34); Mean Corpuscular Volume 81 fl (84-94); Monocytes # (Auto) 0.6 K/mm3 (0.0-0.8); Monocytes % (Auto) 6.7 % (0.0-7.3); Platelet Count 254 K/mm3 (140-440); Red Blood Count 4.76 M/mm3 (3.65-5.03); Red Cell Distribution Width 14.8 % (13.2-15.2)
[2019-10-14 04:33] LABS: INR 0.87 (0.87-1.13)
[2019-10-14 04:41] LABS: Albumin 4.1 g/dL (3.9-5)
[2019-10-14 07:23] LABS: Creatine Kinase MB 4.6 ng/mL (0.0-4.0)
[2019-10-14 11:15] VITALS: BP 135/83
== END 2019-10-14 11:14 | disposition home or self-care (01) ==
LOC: ED 03:10
DX: E11.65 Type 2 diabetes mellitus with hyperglycemia (principal); R55 Syncope and collapse; M13.88 Other specified arthritis, other site; I10 Essential (primary) hypertension; E11.40 Type 2 diabetes mellitus with diabetic neuropathy, unspecified; F17.210 Nicotine dependence, cigarettes, uncomplicated; Z86.2 Personal history of diseases of the blood and blood-forming organs and certain disorders involving the immune mechanism; Z79.899 Other long term (current) drug therapy; Z88.6 Allergy status to analgesic agent; Z79.4 Long term (current) use of insulin
CPT/HCPCS: 36415; 70450; 73630; 80053; 82550; 82553; 82805; 82962; 84443; 84484; 85025; 85610; 93005; 96361; 96374; 96375; 96376; 99285; J1885; J7030; 80320; G0480; J1815

== ENCOUNTER 2020-12-06 13:54 | Emergency (ER) | payer MEDICAID ==
[2020-12-06 15:00] VITALS: BP 147/93
--- NOTE | 2020-12-06 16:35 | XRay Report ---
RIGHT WRIST 4 VIEWS INDICATION / CLINICAL INFORMATION: Syncopal episode 2 days ago with right wrist pain and swelling. COMPARISON: None available. FINDINGS: BONES / JOINT(S): No acute fracture or subluxation. There are mild degenerative changes involving the first metacarpophalangeal joint. SOFT TISSUES: No significant abnormality. ADDITIONAL FINDINGS: None. Signer Name: Lito Gandara MD Signed: 12/06/2020 4:31 PM Workstation Name: [id number]
--- NOTE | 2020-12-06 19:03 | Event Note ---
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 Further treatment and workup at subsequent clinical providers discretion. Patient/guardian urged not to elope from the ED as their condition may be serious if not clinically assessed and managed. Initial orders include: labs, CT head
[2020-12-06 19:41] LABS: Basophils # (Auto) 0.1 K/mm3 (0.0-0.1); Basophils % (Auto) 0.6 % (0.0-1.8); Eosinophils # (Auto) 0.4 K/mm3 (0.0-0.4); Eosinophils % (Auto) 2.9 % (0.0-4.3); Hematocrit 44.4 % (35.5-45.6); Hemoglobin 14.3 gm/dl (11.8-15.2); Lymphocytes # (Auto) 2.8 K/mm3 (1.2-5.4); Lymphocytes % (Auto) 22.9 % (13.4-35.0); Mean Corpuscular HGB Conc 32 % (32-34); Mean Corpuscular Volume 82 fl (84-94); Monocytes % (Auto) 8.1 % (0.0-7.3); Platelet Count 255 K/mm3 (140-440); Red Blood Count 5.43 M/mm3 (3.65-5.03); Red Cell Distribution Width 14.7 % (13.2-15.2)
[2020-12-06 20:02] LABS: Albumin 4.4 g/dL (3.9-5); Calcium 10.3 mg/dL (8.4-10.2)
[2020-12-06] MEDS ORDERED: SODIUM CHLORIDE 0.9% 1000 ML 1,000 ML IV ONE (20:18)
[2020-12-06] MEDS ORDERED: KETOROLAC 30 MG/1 ML INJ IV ONE (20:57)
--- NOTE | 2020-12-06 21:02 | Emergency Department Report ---
ED General Adult HPI - General Chief complaint: Extremity Injury, Upper Stated complaint: FELL ON (R)HANDSWOLLEN IN PAIN Time Seen by Provider: 12/06/20 18:59 Source: patient Mode of arrival: Ambulatory Limitations: No Limitations - History of Present Illness Initial comments: 60 y/o right hand dominant male pt w/ hx of diabetes, hypertension, chronic re nal insufficiency, and vasovagal syncope presents to ED w/ complaints of right wrist pain starting three days ago. Pt states he was coughing when he passed out and landed onto his right wrist. Patient states he has experienced similar syncopal episodes with coughing on multiple prior occasions. Within the last year, he was evaluated by cemetery manager, who performed an echocardiogram and Holter monitoring, and did not find an underlying cardiac etiology for his recurrent syncope. Denies headache, neck pain, paresthesias, numbness, weakness, chest pain, palpitations, seizure shortness of breath. Denies all other complaints at this time. - Related Data Home Medications Medication Instructions Recorded Confirmed Last Taken Amlodipine Besylate [Norvasc] 10 mg PO QDAY 06/13/19 06/13/19 Unknown Aspirin [Aspirin BABY CHEW TAB] 81 mg PO QDAY 06/13/19 06/13/19 Unknown AtorvaSTATin [Lipitor] 40 mg PO QHS 06/13/19 06/13/19 Unknown Cyclobenzaprine [Flexeril 10 MG 10 mg PO BID 06/13/19 06/13/19 Unknown TAB] Finasteride 5 mg PO QDAY 06/13/19 06/13/19 Unknown Insulin Detemir [Levemir Flextouch] 40 unit SQ QDAY 06/13/19 06/13/19 Unknown Insulin Lispro [Humalog 100 16 units SUB-Q TID 06/13/19 06/13/19 Unknown UNITS/ML Kwikpen] Metoprolol Tartrate 50 mg PO BID 06/13/19 06/13/19 Unknown Oxycodone HCl [oxyCODONE] 15 mg PO Q6H PRN 06/13/19 06/13/19 Unknown Tamsulosin [Flomax] 0.4 mg PO QDAY 06/13/19 06/13/19 Unknown Previous Rx's Medication Instructions Recorded Last Taken Type Hydrocortisone 2.5% [Proctosol-Hc] 1 applic MO Q8HR #1 tube 06/14/19 Unknown Rx Insulin Glargine [Lantus VIAL] 20 units SUB-Q QHS units 06/14/19 Unknown Rx Pantoprazole [Protonix TAB] 40 mg PO DAILY #30 tablet 06/14/19 Unknown Rx Allergies Allergy/AdvReac Type Severity Reaction Status Date / Time lisinopril AdvReac Unknown Verified 12/06/20 14:55 ED Review of Systems ROS: Stated complaint: FELL ON (R)HANDSWOLLEN IN PAIN Other details as noted in HPI Other: GENERAL: Negative for fever, chills, weight change, anorexia, fatigue. ENT: Negative for ear pain, difficulty hearing, sore throat, nasal congestion, epistaxis. CARDIOVASCULAR: Negative for chest pain, palpitations, lower extremity swelling. PULMONARY: Negative for cough, dyspnea, wheezing, orthopnea, cyanosis. GASTROINTESTINAL: Negative for abdominal pain, nausea, vomiting, diarrhea, constipation. MUSCULOSKELETAL: Positive for right wrist pain. NEUROLOGICAL: Positive for syncope. INTEGUMENTARY: Negative for erythema, rash, diaphoresis, laceration, ecchymosis. HEMATOLOGICAL: Negative for hemoptysis, hematemesis, hematochezia, hematuria. PSYCHIATRIC: Negative for hallucinations, suicidal ideation, homicidal ideation, anxiety, depression. ED Past Medical Hx - Past Medical History Hx Hypertension: Yes Hx Congestive Heart Failure: No Hx Diabetes: Yes Hx Renal Disease: Yes (Decreased kidney function. MD monitoring.) Hx Arthritis: Yes Hx Kidney Stones: Yes Hx Asthma: No Hx COPD: No Hx HIV: No Additional medical history: Boils, Gallstones, Kidney Stones, Gout, Anemia, Neuropathy - Social History Smoking Status: Current Every Day Smoker (1/4 pack/day) Substance Use Type: None (Denies illicit drug use), Alcohol (Occasional) - Medications Home Medications: Home Medications Medication Instructions Recorded Confirmed Last Taken Type Amlodipine Besylate [Norvasc] 10 mg PO QDAY 06/13/19 06/13/19 Unknown History Aspirin [Aspirin BABY CHEW TAB] 81 mg PO QDAY 06/13/19 06/13/19 Unknown History AtorvaSTATin [Lipitor] 40 mg PO QHS 06/13/19 06/13/19 Unknown History Cyclobenzaprine [Flexeril 10 MG 10 mg PO BID 06/13/19 06/13/19 Unknown History TAB] Finasteride 5 mg PO QDAY 06/13/19 06/13/19 Unknown History Insulin Detemir [Levemir Flextouch] 40 unit SQ QDAY 06/13/19 06/13/19 Unknown History Insulin Lispro [Humalog 100 16 units SUB-Q TID 06/13/19 06/13/19 Unknown History UNITS/ML Kwikpen] Metoprolol Tartrate 50 mg PO BID 06/13/19 06/13/19 Unknown History Oxycodone HCl [oxyCODONE] 15 mg PO Q6H PRN 06/13/19 06/13/19 Unknown History Tamsulosin [Flomax] 0.4 mg PO QDAY 06/13/19 06/13/19 Unknown History Hydrocortisone 2.5% [Proctosol-Hc] 1 applic MO Q8HR #1 tube 06/14/19 Unknown Rx Insulin Glargine [Lantus VIAL] 20 units SUB-Q QHS units 06/14/19 Unknown Rx Pantoprazole [Protonix TAB] 40 mg PO DAILY #30 tablet 06/14/19 Unknown Rx ED Physical Exam - General Limitations: No Limitations - Other Other exam information: General: Awake and alert. No acute distress. Head: Atraumatic, normocephalic. Eyes: EOMI. Pupils are equal and round. Normal sclera and conjunctiva. ENT: Oral mucosa is moist. Normal pharyngeal exam. Neck: Supple. No lymphadenopathy. Pulmonary: No respiratory distress. Clear to auscultation bilaterally. Cardiac: Tachycardic. Pulses are palpable and equal bilaterally. No lower extremity cyanosis or edema. Skin: Warm and dry. No rashes. Abdomen: Soft, non-tender, non-protuberant. No guarding, rigidity, or rebound. Bowel sounds are normal. No organomegaly or masses noted. Back: Normal alignment. No CVA tenderness. Extremities: Tenderness to palpation throughout the right wrist without obvious deformity or dislocation. No scaphoid tenderness. Symmetrical. Full range of motion intact. Distal neurovascular and motor/sensory function intact. Neurological: Alert and oriented, appropriately interactive, no focal deficits. Psych: Cooperative. Appropriate mood and affect. Speech is evenly metered. Thoughts are logically construed. ED Course Vital Signs 12/06/20 12/06/20 14:59 22:19 Temperature 99.0 F Pulse Rate 114 H 98 H Respiratory 20 18 Rate Blood Pressure 147/93 O2 Sat by Pulse 96 100 Oximetry ED Medical Decision Making - Lab Data Result diagrams: 12/06/20 19:25 12/06/20 19:25 - EKG Data 12/06/20 21:05 EKG shows sinus tachycardia with a ventricular rate of 112 bpm. Normal axis. Normal MO interval. Normal QT interval. Good R wave progression. Nonspecific inferior ST segment changes. Unchanged from prior EKG in 2020. Over read by attending emergency physician, who agrees with this interpretation - Medical Decision Making Differential diagnosis including but not limited to: sprain, strain, fracture, contusion, dislocation On reevaluation, patient remains stable. Repeat neurovascular exam remains intact. X-ray of the right wrist without acute process. Right wrist placed in Arnaldo wrap. Patient has a history of recurrent syncope, which has already been worked up extensively on both an inpatient and an outpatient basis. Review of past medical records indicates patient has undergone cardiology consultation and advanced imaging without evidence to suggest cardiogenic syncope. These episodes generally occur with coughing, suggestive of vasovagal etiology. The syncopal episode preceding the fall onto the right wrist was consistent with prior syncopal episodes. Currently, patient is asymptomatic, aside from the p ain in his right wrist. His EKG is unchanged from prior tracing. Troponin is negative. Neurological exam is nonfocal. Labs show hyperglycemia without concomitant ketonuria or acidosis to suggest DKA. Patient admits he missed 2 of his insulin doses today. Given IV fluids with improvement in both heart rate and serum glucose level. No clinical indication for further diagnostic work-up on an emergent basis at this time. Patient will be discharged home to continue his medications as previously prescribed and follow-up with primary care provider. Patient expressed understanding and is agreeable to plan of care. Lifestyle modifications discussed. RICE precautions discussed. Strict return precautions provided. Repeat exam is unremarkable and benign. History, exam, diagnostic testing, and current condition do not suggest worrisome pathology to warrant further testing, continued ED treatment, admission, or surgical evaluation at this point. Given the low probability of a significant medical illness, it would be more likely to result in harm than benefit to perform further testing at this stage. Discussed findings, presumptive diagnosis, need for follow-up and specific signs/symptoms that should prompt immediate return to the emergency department. Instructions were explained in detail to the patient in addition to giving written discharge information. Patient expressed understanding and was given the opportunity to ask questions, all of which were satisfactorily answered prior to discharge home. Critical care attestation.: If time is entered above; I have spent that time in minutes in the direct care of this critically ill patient, excluding procedure time. ED Disposition Clinical Impression: Recurrent syncope Right wrist sprain Qualifiers: Encounter type: initial encounter Qualified Code(s): S63.501A - Unspecified sprain of right wrist, initial encounter Hyperglycemia due to type 2 diabetes mellitus Qualifiers: Diabetes mellitus detention insulin use: with detention use Qualified Code(s): E11.65 - Type 2 diabetes mellitus with hyperglycemia Disposition: TO HOME OR SELFCARE Is pt being admited?: No Does the pt Need Aspirin: No Condition: Stable Instructions: Type 2 Diabetes Mellitus, Self Care, Adult, [id number], Wrist Sprain, Adult, Syncope, [id number], Diabetes Mellitus Type 2 in Adults (ED) Additional Instructions: Take Tylenol 1000 mg every 4 hours as needed for pain. Continue all other medications as previously prescribed. Wear Arnaldo wrap as directed. Keep right wrist elevated as often as possible to reduce swelling. Apply ice to the affected area as needed to reduce swelling. Follow-up with your primary care provider this week. Call tomorrow to schedule an appointment. Return to the emergency department immediately for new or worsening symptoms. Specifically, return to the emergency department immediately for chest pain, shortness of breath, palpitations, dehydration, or any other concerns. Referrals: [facility] [Provider Group] - 3-5 Days Time of Disposition: 22:52
[2020-12-06 21:26] LABS: Bilirubin,Urine NEG (Negative); Blood,Urine NEG (Negative); Color,Urine Yellow (Yellow); Mucus,Urine FEW /HPF; Protein,Urine <15 mg/dL mg/dL (Negative); Urobilinogen,Urine < 2.0 mg/dL (<2.0)
--- NOTE | 2020-12-07 17:51 | Electrocardiograph Report ---
[facility] Test Date: 2020-12-06 Test Time: 15:21:19 Pat Name: CHIN AMAYA Department: Room: Gender: M Engineer Process: AILYN : 1960 Requested By: CAT TORRES Order Number: [id number] Reading MD: Collin Richardson Measurements Intervals [place] Rate: 112 P: 40 AL: 182 QRS: 26 QRSD: 72 T: -6 QT: 343 QTc: 469 Interpretive Statements Sinus tachycardia Low voltage, precordial leads Consider anteroseptal infarct No previous ECG available for comparison Electronically Signed On 12-07-2020 17:51:04 EDT by Collin Richardson
== END 2020-12-06 23:00 | disposition home or self-care (01) ==
LOC: ED 13:54
DX: S63.501A Unspecified sprain of right wrist, initial encounter (principal); R55 Syncope and collapse; E11.65 Type 2 diabetes mellitus with hyperglycemia; I10 Essential (primary) hypertension; Z87.442 Personal history of urinary calculi; N28.9 Disorder of kidney and ureter, unspecified; M19.90 Unspecified osteoarthritis, unspecified site; F17.290 Nicotine dependence, other tobacco product, uncomplicated; Z88.8 Allergy status to other drugs, medicaments and biological substances; W19.XXXA Unspecified fall, initial encounter; Y93.89 Activity, other specified; Y92.89 Other specified places as the place of occurrence of the external cause; Y99.8 Other external cause status
CPT/HCPCS: 36415; 73110; 80053; 81001; 82550; 82805; 82962; 83735; 84484; 85025; 93005; 96361; 96374; 99284; J1885; J7030

== ENCOUNTER 2021-03-09 21:11 | Emergency (ER) | payer MEDICAID ==
--- NOTE | 2021-03-09 21:35 | Emergency Department Report ---
ED Seizure HPI - General Stated Complaint: POSS SEIZURES,SYNCOPE Time Seen by Provider: 03/09/21 21:19 Source: patient, EMS, old records reviewed Mode of arrival: Stretcher Limitations: No Limitations - History of Present Illness Initial Comments: Chief complaint: "I have syncope. Now I think I am having seizures." HPI: 60-year-old male with history of insulin-dependent diabetes, recurrent syncope, hyperlipidemia, diverticulosis, who presents with seizure-like episode for several months. He has had 3 of these episodes over the last few days. His daughter has witnessed generalized shaking urinary continence tongue biting. He was evaluated Thursday by neurologist. He has further testing scheduled for March 18. His neurologist did not prescribe antiepileptic medication. Patient has mild headache due to trauma. He struck the left side of his head corner of furniture. Mr. Amaya has had evaluation of syncope at this hospital June 2019 including echocardiogram carotid Doppler studies GI evaluation. Blood glucose per EMS read as high" patient states that he did not take his insulin today. Mr. Amaya also endorses neck pain right arm pain after fall. MD Complaint: seizure -: Gradual Description of Episode: loss of consciousness, tonic-clonic movement Witnessed:: Yes Trauma: Yes Seizure History: other (History of recurrent syncope, seizure-like activity for several months) Place: home Possible Precipitating Event: none Associated Symptoms: other (Headache after head trauma, head struck the corner of furniture) - Related Data Home Medications Medication Instructions Recorded Confirmed Last Taken Amlodipine Besylate [Norvasc] 10 mg PO QDAY 06/13/19 06/13/19 Unknown Aspirin [Aspirin BABY CHEW TAB] 81 mg PO QDAY 06/13/19 06/13/19 Unknown AtorvaSTATin [Lipitor] 40 mg PO QHS 06/13/19 06/13/19 Unknown Cyclobenzaprine [Flexeril 10 MG 10 mg PO BID 06/13/19 06/13/19 Unknown TAB] Finasteride 5 mg PO QDAY 06/13/19 06/13/19 Unknown Insulin Detemir [Levemir Flextouch] 40 unit SQ QDAY 06/13/19 06/13/19 Unknown Insulin Lispro [Humalog 100 16 units SUB-Q TID 06/13/19 06/13/19 Unknown UNITS/ML Kwikpen] Metoprolol Tartrate 50 mg PO BID 06/13/19 06/13/19 Unknown Oxycodone HCl [oxyCODONE] 15 mg PO Q6H PRN 06/13/19 06/13/19 Unknown Tamsulosin [Flomax] 0.4 mg PO QDAY 06/13/19 06/13/19 Unknown Previous Rx's Medication Instructions Recorded Last Taken Type Hydrocortisone 2.5% [Proctosol-Hc] 1 applic CA Q8HR #1 tube 06/14/19 Unknown Rx Insulin Glargine [Lantus VIAL] 20 units SUB-Q QHS units 06/14/19 Unknown Rx Pantoprazole [Protonix TAB] 40 mg PO DAILY #30 tablet 06/14/19 Unknown Rx Allergies Allergy/AdvReac Type Severity Reaction Status Date / Time No Known Allergies Allergy Verified 03/09/21 22:08 ED Review of Systems ROS: Stated complaint: POSS SEIZURES,SYNCOPE Other details as noted in HPI Comment: All other systems reviewed and negative Constitutional: denies: chills, fever, malaise Respiratory: denies: cough, orthopnea, shortness of breath Cardiovascular: denies: chest pain Gastrointestinal: denies: abdominal pain, nausea, vomiting Neurological: headache ED Past Medical Hx - Past Medical History Previous Medical History?: Yes Hx Hypertension: Yes Hx Congestive Heart Failure: No Hx Diabetes: Yes Hx Renal Disease: Yes (Decreased kidney function. MD monitoring.) Hx Arthritis: Yes Hx Kidney Stones: Yes Hx Asthma: No Hx COPD: No Hx HIV: No Additional medical history: Boils, Gallstones, Kidney Stones, Gout, Anemia, Neuropathy - Social History Smoking Status: Current Every Day Smoker (1/4 pack/day) Substance Use Type: None (Denies illicit drug use), Alcohol (Occasional) - Medications Home Medications: Home Medications Medication Instructions Recorded Confirmed Last Taken Type Amlodipine Besylate [Norvasc] 10 mg PO QDAY 06/13/19 06/13/19 Unknown History Aspirin [Aspirin BABY CHEW TAB] 81 mg PO QDAY 06/13/19 06/13/19 Unknown History AtorvaSTATin [Lipitor] 40 mg PO QHS 06/13/19 06/13/19 Unknown History Cyclobenzaprine [Flexeril 10 MG 10 mg PO BID 06/13/19 06/13/19 Unknown History TAB] Finasteride 5 mg PO QDAY 06/13/19 06/13/19 Unknown History Insulin Detemir [Levemir Flextouch] 40 unit SQ QDAY 06/13/19 06/13/19 Unknown History Insulin Lispro [Humalog 100 16 units SUB-Q TID 06/13/19 06/13/19 Unknown History UNITS/ML Kwikpen] Metoprolol Tartrate 50 mg PO BID 06/13/19 06/13/19 Unknown History Oxycodone HCl [oxyCODONE] 15 mg PO Q6H PRN 06/13/19 06/13/19 Unknown History Tamsulosin [Flomax] 0.4 mg PO QDAY 06/13/19 06/13/19 Unknown History Hydrocortisone 2.5% [Proctosol-Hc] 1 applic CA Q8HR #1 tube 06/14/19 Unknown Rx Insulin Glargine [Lantus VIAL] 20 units SUB-Q QHS units 06/14/19 Unknown Rx Pantoprazole [Protonix TAB] 40 mg PO DAILY #30 tablet 06/14/19 Unknown Rx ED Physical Exam - General Limitations: No Limitations General appearance: alert, in no apparent distress - Head Head exam: Present: atraumatic, normocephalic - Eye Eye exam: Present: normal appearance - ENT ENT exam: Present: mucous membranes moist - Neck Neck exam: Present: normal inspection, full ROM - Respiratory Respiratory exam: Present: normal lung sounds bilaterally. Absent: respiratory distress, wheezes, rales, rhonchi - Cardiovascular Cardiovascular Exam: Present: regular rate, normal rhythm, normal heart sounds. Absent: systolic murmur, diastolic murmur, rubs, gallop - GI/Abdominal GI/Abdominal exam: Present: soft, normal bowel sounds. Absent: distended, tenderness, guarding, rebound - Rectal Rectal exam: Present: deferred - Extremities Exam Extremities exam: Present: normal inspection - Neurological Exam Neurological exam: Present: alert, oriented X3 - Psychiatric Psychiatric exam: Present: normal affect, normal mood - Skin Skin exam: Present: warm, dry, intact, normal color. Absent: rash ED Course Vital Signs 03/09/21 03/09/21 03/09/21 21:17 22:00 22:16 Temperature 98.7 F 98.3 F Pulse Rate 112 H 115 H 114 H Respiratory 16 18 20 Rate Blood Pressure 113/80 119/79 Blood Pressure 119/71 116/75 [Left] O2 Sat by Pulse 98 98 95 Oximetry 03/09/21 03/09/21 03/09/21 22:20 22:30 22:46 Temperature Pulse Rate 112 H 112 H Respiratory 18 16 16 Rate Blood Pressure 116/83 113/80 Blood Pressure [Left] O2 Sat by Pulse 95 Oximetry 03/09/21 03/09/21 03/09/21 23:10 23:16 23:30 Temperature Pulse Rate 93 H 110 H 107 H Respiratory 17 26 H Rate Blood Pressure 115/73 115/73 122/65 Blood Pressure [Left] O2 Sat by Pulse 98 96 97 Oximetry 03/10/21 00:15 Temperature Pulse Rate Respiratory 18 Rate Blood Pressure Blood Pressure [Left] O2 Sat by Pulse Oximetry ED Medical Decision Making - Lab Data Result diagrams: 03/09/21 21:39 03/09/21 21:39 - Radiology Data Radiology results: report reviewed Patient Name: CHIN AMAYA Gender: Male Date of : 1960 Referring Provider: KRIS MÉNDEZ Organization: [facility] Accession Number: [id number] Requested Date: March 09, 2021 22:04 Report Status: Final Requested Procedure: 1 Procedure Description: CT head/brain wo con Modality: CT Findings Reporting MD: Meir Negro Dictation Time: March 09, 2021 22:23 Funeral Greeter: Not available Card Checker Date: CT HEAD WITHOUT CONTRAST INDICATION: recurrent seizure head trauma. TECHNIQUE: All CT scans at this location are performed using CT dose reduction for ALARA by means of automated exposure control. COMPARISON: CT 10/14/2019 FINDINGS: HEMORRHAGE: None. EXTRA-AXIAL SPACES: Normal in size and morphology for the patient's age. VENTRICULAR SYSTEM: Normal in size and morphology for the patient's age. BRAIN PARENCHYMA: No acute findings. MIDLINE SHIFT OR HERNIATION: None. ORBITS: Normal as visualized. SOFT TISSUES OF HEAD: Normal. CALVARIUM: Normal. VISUALIZED PARANASAL SINUSES AND MASTOID AIR CELLS: Clear. ADDITIONAL FINDINGS: None. IMPRESSION: 1. No acute intracranial abnormality. Signer Name: Meir Negro MD Signed: 03/09/2021 10:23 PM Workstation Name: [id number] Patient Name: CHIN AMAYA Gender: Male Date of : 1960 Referring Provider: KRIS MÉNDEZ Organization: [facility] Accession Number: [id number] Requested Date: March 09, 2021 22:07 Report Status: Final Requested Procedure: 1 Procedure Description: CT cervical spine wo con Modality: CT Findings Reporting MD: Meir Negro Dictation Time: March 09, 2021 22:21 Funeral Greeter: Not available Card Checker Date: CT CERVICAL SPINE WITHOUT CONTRAST INDICATION: Neck pain arm pain after fall. TECHNIQUE: Axial CT images of the spine were obtained. Sagittal and coronal reformatted images were produced. All CT scans at this location are performed using CT dose reduction for ALARA by means of automated exposure control. COMPARISON: None available. FINDINGS: ACUTE FRACTURE(S) OR SUBLUXATION: None. SPINAL DEGENERATIVE CHANGES: There is diffuse spondylosis greatest at C5-6. PARASPINAL SOFT TISSUES: No soft tissue swelling or other acute abnormalities. ADDITIONAL FINDINGS: No significant additional findings. IMPRESSION: 1. No acute fracture or subluxation in the spine in neutral position. Signer Name: Meir Negro MD Signed: 03/09/2021 10:21 PM Workstation Name: [id number] - Medical Decision Making Is a 60-year-old male who has been evaluated for recurrent seizures over the last several months. CT head obtained with history of trauma. CT cervical sp ine also obtained with history of trauma neck pain arm pain. CBC unremarkable chemistry revealed glucose 452 acute on chronic renal insufficiency creatinine increased 1.5-1.9. Patient's heart rate improved with IV fluid therapy. Repeat heart rate 89 bpm prior to discharge. Patient did not have any seizure activity in emergency department. I recommended calling his new neurologist for possible treatment. Patient observed 3 hours in emergency department without seizure activity. Critical care attestation.: If time is entered above; I have spent that time in minutes in the direct care of this critically ill patient, excluding procedure time. ED Disposition Clinical Impression: Seizure Disposition: 01 HOME / SELF CARE / HOMELESS Is pt being admited?: No Does the pt Need Aspirin: No Condition: Stable Instructions: Seizure, Adult
[2021-03-09 21:56] LABS: Basophils # (Auto) 0.1 K/mm3 (0.0-0.1); Eosinophils # (Auto) 0.3 K/mm3 (0.0-0.4); Eosinophils % (Auto) 2.4 % (0.0-4.3); Hematocrit 41.5 % (35.5-45.6); Hemoglobin 13.1 gm/dl (11.8-15.2); Lymphocytes # (Auto) 2.4 K/mm3 (1.2-5.4); Lymphocytes % (Auto) 21.6 % (13.4-35.0); Mean Corpuscular HGB Conc 32 % (32-34); Mean Corpuscular Volume 81 fl (84-94); Monocytes # (Auto) 0.5 K/mm3 (0.0-0.8); Monocytes % (Auto) 4.5 % (0.0-7.3); Platelet Count 277 K/mm3 (140-440); Red Blood Count 5.15 M/mm3 (3.65-5.03)
[2021-03-09] MEDS ORDERED: ONDANSETRON 4 MG/2 ML INJ IV ONE (22:08)
[2021-03-09] MEDS ORDERED: HYDROcodone/ACETAMINOPHEN 5-325 MG TAB PO ONE (22:08)
[2021-03-09] MEDS ORDERED: SODIUM CHLORIDE 0.9% 1000 ML 1,000 ML IV ONE ×2 (22:08)
[2021-03-09] MEDS ORDERED: MORPHINE 4 MG/1 ML INJ IV ONE ×2 (22:08→23:45)
[2021-03-09 22:15] LABS: Albumin 3.6 g/dL (3.9-5); Calcium 8.9 mg/dL (8.4-10.2)
--- NOTE | 2021-03-09 23:25 | Cat Scan Report ---
CT CERVICAL SPINE WITHOUT CONTRAST INDICATION: Neck pain arm pain after fall. TECHNIQUE: Axial CT images of the spine were obtained. Sagittal and coronal reformatted images were produced. Al l CT scans at this location are performed using CT dose reduction for ALARA by means of automated exp osure control. COMPARISON: None available. FINDINGS: ACUTE FRACTURE(S) OR SUBLUXATION: None. SPINAL DEGENERATIVE CHANGES: There is diffuse spondylosis greatest at C5-6. PARASPINAL SOFT TISSUES: No soft tissue swelling or other acute abnormalities. ADDITIONAL FINDINGS: No significant additional findings. IMPRESSION: 1. No acute fracture or subluxation in the spine in neutral position. Signer Name: Meir Negro MD Signed: 03/09/2021 11:21 PM Workstation Name: [id number]
--- NOTE | 2021-03-09 23:28 | Cat Scan Report ---
CT HEAD WITHOUT CONTRAST INDICATION: recurrent seizure head trauma. TECHNIQUE: All CT scans at this location are performed using CT dose reduction for ALARA by means of automated e xposure control. COMPARISON: CT 10/14/2019 FINDINGS: HEMORRHAGE: None. EXTRA-AXIAL SPACES: Normal in size and morphology for the patient's age. VENTRICULAR SYSTEM: Normal in size and morphology for the patient's age. BRAIN PARENCHYMA: No acute findings. MIDLINE SHIFT OR HERNIATION: None. ORBITS: Normal as visualized. SOFT TISSUES OF HEAD: Normal. CALVARIUM: Normal. VISUALIZED PARANASAL SINUSES AND MASTOID AIR CELLS: Clear. ADDITIONAL FINDINGS: None. IMPRESSION: 1. No acute intracranial abnormality. Signer Name: Meir Negro MD Signed: 03/09/2021 11:23 PM Workstation Name: [id number]
[2021-03-09] MEDS ORDERED: MORPHINE 2 MG/1 ML INJ IV ONE (23:45)
[2021-03-10 01:37] VITALS: BP 117/68
== END 2021-03-10 00:40 | disposition home or self-care (01) ==
LOC: ED 21:11
DX: R56.9 Unspecified convulsions (principal); R55 Syncope and collapse; I10 Essential (primary) hypertension; E11.9 Type 2 diabetes mellitus without complications; M19.90 Unspecified osteoarthritis, unspecified site; F17.210 Nicotine dependence, cigarettes, uncomplicated; Z72.89 Other problems related to lifestyle; Z87.442 Personal history of urinary calculi; Z79.82 Long term (current) use of aspirin; Z79.899 Other long term (current) drug therapy
CPT/HCPCS: 36415; 70450; 72125; 80053; 85025; 96361; 96374; 96375; 99284; J2270; J2405; J7030